=== PATIENT | female | born 1980 | race Hispanic/Latino ===

== ENCOUNTER 2019-07-27 12:56 | Inpatient (IN) | payer BC, OTHER ==
[~2019-07-27] VITALS: Ht 154.9 cm; Wt 76.2 kg
[2019-07-27 13:50] LABS: BASOPHILS % 0.3 % (0.0-1.0); HEMATOCRIT 42.4 % (34.2-44.1); HEMOGLOBIN 13.9 g/dL (12.0-16.0); LYMPHOCYTES # (AUTO) 1.3 (1.0-3.2); LYMPHOCYTES % 20.4 % (18.0-39.1); MEAN CORPUSCULAR HGB CONC 32.8 g/dL (31-35); MEAN CORPUSCULAR VOLUME 88.3 fL (81-99); MONOCYTES # (AUTO) 0.3 (0.2-0.8); MONOCYTES % 4.4 % (4.4-11.3); NEUTROPHILS # (AUTO) 4.6 (2.1-6.9); NEUTROPHILS % 74.4 % (38.7-80.0); PLATELET COUNT 238 x10e3/uL (140-360); RED CELL DISTRIBUTION WIDTH 13.7 % (11.7-14.4)
[2019-07-27 14:03] LABS: INR 0.82; PARTIAL THROMBOPLASTIN TIME 31.8 seconds (23.8-35.5); PROTHROMBIN TIME 11.8 seconds (11.9-14.5)
[2019-07-27] MEDS ORDERED: SODIUM CHLORIDE 0.9% 1000ML 1,000 ML ONE (14:05)
[2019-07-27 14:13] LABS: ALANINE AMINOTRANSFERASE 28 IU/L (0-55); ALBUMIN 3.4 g/dL (3.5-5.0); ALBUMIN/GLOBULIN RATIO 0.7 (0.8-2.0); ALKALINE PHOSPHATASE 104 IU/L (40-150); ANION GAP 17.1 mmol/L (8-16); BLOOD UREA NITROGEN 8 mg/dL (7-26); BUN/CREATININE RATIO 11 (6-25); CALCIUM 8.9 mg/dL (8.4-10.2); CARBON DIOXIDE 21 mmol/L (22-29); CHLORIDE 100 mmol/L (98-107); CREATINE KINASE 61 IU/L (29-168); CREATININE, SERUM 0.74 mg/dL (0.57-1.11); EST GLOMERULAR FILTRATION RATE > 60 ML/MIN (60-); GLUCOSE 97 mg/dL (74-118); POTASSIUM 3.1 mmol/L (3.5-5.1); SODIUM 135 mmol/L (136-145)
[2019-07-27] MEDS ORDERED: SODIUM CHLORIDE 0.9% 1000ML 1,000 ML IV ONE (14:15)
[2019-07-27] MEDS ORDERED: CEFTRIAXONE SOD 1 GM/NS 50 ML 50 ML IV ONE (14:15)
[2019-07-27] MEDS ORDERED: ACETAMINOPHEN 325 MG TAB PO ONE (14:15)
--- NOTE | 2019-07-27 15:07 | Diagnostic Imaging Report ---
EXAM: CHEST SINGLE (PORTABLE) DATE: 07/27/2019 2:00 PM INDICATION: Dyspnea COMPARISON: None FINDINGS: The trachea is midline. There are increased interstitial opacities present bilaterally. There is no evidence for large focal consolidation, pneumothorax, or significant pleural effusion. The cardiomediastinal silhouette is within normal limits. No acute osseous abnormalities identified. The stranding soft tissues are unremarkable. IMPRESSION: Increased bilateral interstitial opacities which are nonspecific but can be seen in the setting of edema. An atypical/viral infectious or inflammatory process could have a similar appearance. Signed by: Dr. Mario Davila MD on 07/27/2019 3:04 PM
--- NOTE | 2019-07-27 16:24 | Emergency Department Note ---
History of Present Illnes History of Present Illness Chief Complaint: Respiratory History of Present Illness This is a 39 year old female sent from medics breast or shortness of breath cough and congestion, patient admits to having a cold exposure. Chief Complaint Comment SENT OVER FROM [facility] FOR DIFFICULTY BREATHING, COUGH AND CONGESTION X 5 DAYS AND PUI STATES HER FRIEND WAS RECENTLY DX WITH COVID DENIES CP PRESENTS WITH FEVER C/O CHILLS AND MUSCLE ACHES AND NAUSEA NO VOMITING DENIES LOSS OF TASTE/SMELL Historian: Patient Arrival Mode: Car Onset (how long ago): day(s) Radiation: non-radiation Severity: moderate Onset quality: gradual Timing of current episode: constant Progression: worsening Chronicity: new Context: recent illness Relieving factors: none Exacerbating factors: none Past Medical/Family History Physician Review I have reviewed the patient's past medical and family history. Any updates have been documented here. Past Medical History Recent Fever: Yes Clinical Suspicion of Infectio: Yes New/Unexplained Change in Ment: No Past Medical History: None Past Surgical History: Cholecysctectomy, Social History Smoking Cessation: Never Smoker Counseling Performed: No Alcohol Use: None Any Illegal Drug Use: No TB Exposure/Symptoms: No Physically hurt or threatened: No Other Last Tetanus: UTD Any Pre-Existing Lines (PICC,: No Is patient up to date on immun: Yes Last Flu: UTD Last Pneumovax: OOD Review of Systems Review of Systems Constitutional: no symptoms EENTM: no symptoms Cardiovascular: no symptoms Respiratory: as per HPI, cough, dyspnea, dyspnea on exertion Gastrointestinal: no symptoms Genitourinary: no symptoms Musculoskeletal: no symptoms Neurological: no symptoms Psychological: no symptoms Endocrine: no symptoms Hematological/Lymphatic: no symptoms Review of other systems All other systems reviewed and negative. Physical Exam Related Data Allergies: Coded Allergies: No Known Allergies (Unverified , 07/27/19) Triage Vital Signs Vital Signs Date Time Temp Pulse Resp B/P (MAP) Pulse Ox O2 Delivery O2 Flow Rate FiO2 07/27/19 13:40 102.9 110 24 132/83 100 Vital signs reviewed: Yes Physical Exam CONSTITUTIONAL Constitutional: well-developed, well-nourished, ill appearing HENT HENT: normocephalic, atraumatic, oropharynx clear/moist, nose normal HENT L/R: left ext ear normal, right ext ear normal EYES Eyes: PERRL, conjunctivae normal NECK Neck: ROM normal PULMONARY Pulmonary: effort normal, respiratory distress CARDIOVASCULAR Cardiovascular: regular rhythm, heart sounds normal, capillary refill normal, normal rate GASTROINTESTINAL Abdominal: soft, nontender, bowel sounds normal GENITOURINARY Genitourinary: exam deferred SKIN Skin: warm, dry MUSCULOSKELETAL Musculoskeletal: ROM normal NEUROLOGICAL Neurological: alert, oriented x 3, no gross motor or sensory deficits PSYCHOLOGICAL Psychological: mood/affect normal, judgement normal Results Laboratory Result Diagram: 07/27/19 1335 07/27/19 1335 Laboratory Laboratory Tests Test 07/27/19 13:35 White Blood Count 6.19 x10e3/uL (4.8-10.8) Red Blood Count 4.80 x10e6/uL (3.6-5.1) Hemoglobin 13.9 g/dL (12.0-16.0) Hematocrit 42.4 % (34.2-44.1) Mean Corpuscular Volume 88.3 fL (81-99) Mean Corpuscular Hemoglobin 29.0 pg (28-32) Mean Corpuscular Hemoglobin Concent 32.8 g/dL (31-35) Red Cell Distribution Width 13.7 % (11.7-14.4) Platelet Count 238 x10e3/uL (140-360) Neutrophils (%) (Auto) 74.4 % (38.7-80.0) Lymphocytes (%) (Auto) 20.4 % (18.0-39.1) Monocytes (%) (Auto) 4.4 % (4.4-11.3) Eosinophils (%) (Auto) 0.0 % (0.0-6.0) Basophils (%) (Auto) 0.3 % (0.0-1.0) Neutrophils # (Auto) 4.6 (2.1-6.9) Lymphocytes # (Auto) 1.3 (1.0-3.2) Monocytes # (Auto) 0.3 (0.2-0.8) Eosinophils # (Auto) 0.0 (0.0-0.4) Basophils # (Auto) 0.0 (0.0-0.1) Absolute Immature Granulocyte (auto 0.03 x10e3/uL (0-0.1) Prothrombin Time 11.8 seconds (11.9-14.5) Prothromb Time International Ratio 0.82 Activated Partial Thromboplast Time 31.8 seconds (23.8-35.5) Sodium Level 135 mmol/L (136-145) Potassium Level 3.1 mmol/L (3.5-5.1) Chloride Level 100 mmol/L (98-107) Carbon Dioxide Level 21 mmol/L (22-29) Anion Gap 17.1 mmol/L (8-16) Blood Urea Nitrogen 8 mg/dL (7-26) Creatinine 0.74 mg/dL (0.57-1.11) Estimat Glomerular Filtration Rate > 60 ML/MIN (60-) BUN/Creatinine Ratio 11 (6-25) Glucose Level 97 mg/dL (74-118) Lactic Acid Level 1.0 mmol/L (0.5-2.0) Calcium Level 8.9 mg/dL (8.4-10.2) Total Bilirubin 0.6 mg/dL (0.2-1.2) Aspartate Amino Transf (AST/SGOT) 35 IU/L (5-34) Alanine Aminotransferase (ALT/SGPT) 28 IU/L (0-55) Alkaline Phosphatase 104 IU/L (40-150) Creatine Kinase 61 IU/L (29-168) Creatine Kinase MB 0.20 ng/mL (0-5.0) Troponin I 0.001 ng/mL (0-0.300) Total Protein 8.4 g/dL (6.5-8.1) Albumin 3.4 g/dL (3.5-5.0) Globulin 5.0 g/dL (2.3-3.5) Albumin/Globulin Ratio 0.7 (0.8-2.0) Lab results reviewed: Yes Imaging Imaging results reviewed: Yes Impressions FINDINGS: The trachea is midline. There are increased interstitial opacities present bilaterally. There is no evidence for large focal consolidation, pneumothorax, or significant pleural effusion. The cardiomediastinal silhouette is within normal limits. No acute osseous abnormalities identified. The stranding soft tissues are unremarkable. IMPRESSION: Increased bilateral interstitial opacities which are nonspecific but can be seen in the setting of edema. An atypical/viral infectious or inflammatory process could have a similar appearance. Signed by: Dr. Mario Davila MD on 07/27/2019 3:04 PM Procedures 12 Lead ECG Interpretation Prior E [employer] tracings: reviewed Rhythm: sinus tachycardia QRS axis: normal ST segments normal: Yes T waves normal: Yes Critical Care Time Total Critical Care Time (min): 35 Critcal care necessary due to: respiratory failure Subsequent provider I assumed direction of critical care for this patient from another provider of my specialty. Assessment & Plan Reassessment Reassessment Patient presented during the COVID-19 virus pandemic and has a clinical picture consistent with a COVID-19 source for sepsis. Thus, patient was treated for suspected viral sepsis rather than bacterial sepsis. Given the potential for ARDS and present suggestions of early data from COVID treatment in other areas, fluids were given judiciously and the bacterial sepsis guidelines were deviated from. For consideration of other sources, blood cultures, antibiotics and lactic acid will potentially be ordered. Will continue to monitor blood pressure and adjust fluid resuscitation accordingly." Assessment & Plan Final Impression: (1) VIRAL PNEUMONIA, UNSPECIFIED Assessment & Plan cbc, cmp CXR Covid Positive Early proning Admission for respiratory monitoring Depart Disposition: ADMITTED Last Vital Signs Date Time Temp Pulse Resp B/P (MAP) Pulse Ox O2 Delivery O2 Flow Rate FiO2 07/27/19 15:45 101 20 108/74 98 07/27/19 13:40 102.9 Medications in the ED Sodium Chloride 1,000 ml @ ud STK-MED ONCE .ROUTE ; Start 07/27/19 at 14:05; Stop 07/27/19 at 13:59; Status DC Sodium Chloride 1,000 ml @ 999 mls/hr ONCE ONCE IV Last administered on 07/27/19at 15:44; Admin Dose 999 MLS/HR; Start 07/27/19 at 14:15; Stop 07/27/19 at 15:15 Acetaminophen 975 mg ONCE ONCE PO Last administered on 07/27/19at 15:45; Admin Dose 975 MG; Start 07/27/19 at 14:15; Stop 07/27/19 at 14:16 Ceftriaxone Sodium 50 ml @ 100 mls/hr ONCE ONCE IV Last administered on 07/27/19at 15:44; Admin Dose 100 MLS/HR; Start 07/27/19 at 14:15; Stop 07/27/19 at 14:44 GEOVANY JACOB DO Jul 27, 2019 16:24
--- OUTSIDE RECORDS SUMMARY | 2019-07-27 16:30 | XMS REPORT ---
Author Author [facility] t Organization [facility] Address [address] [place] [address] Dr. Ritchie [address] [place] [id number] Phone Unavailable Care Team Providers Care Service Greeter Name Role Phone Jeremiah JACOB Attfawad Unavailable Problems This patient has no known problems. Allergies, Adverse Reactions, Alerts This patient has no known allergies or adverse reactions. Medications This patient has no known medications. Procedures This patient has no known procedures. Results Test Description Test Time Test Comments Results Result Comments Source CHEST SINGLE (PORTABLE) 2019-07-27 15:02:00 [place] [address] Patient Name: BLAISE LUIS MR #: [id number] : 1980 Age/Sex: 39/F Req #: [id number] Adm Physician: Ordered by: GEOVANY JACOB DO Report #: [id number] Location: ER Room/Bed: Procedure: [id number] DX/CHEST SINGLE (PORTABLE) Exam Date: 07/27/19 Exam Time: 1400 REPORT STATUS: Signed EXAM: CHEST SINGLE (PORTABLE) DATE: 07/27/2019 2:00 PM INDICATION: Dyspnea COMPARISON: None FINDINGS: The trachea is midline. There are increased interstitial opacities present bilaterally. There is no evidence for large focal consolidation, pneumothorax, or significant pleural effusion. The cardiomediastinal silhouette is within normal limits. No acute osseous abnormalities identified. The stranding soft tissues are unremarkable. IMPRESSION: Increased bilateral interstitial opacities which are nonspecific but can be seen in the setting of edema. An atypical/viral infectious or inflammatory process could h ave a similar appearance. Signed by: Dr. Mario Davila MD on 07/27/2019 3:04 PM Dictated By: MARIO DAVILA MD [id number] Transcribed By: JAIRO on 07/27/19 1503 COPY TO: GEOVANY JACOB DO
[2019-07-27] MEDS ORDERED: ACETAMINOPHEN 325 MG TAB PO PRN (17:45)
[2019-07-27] MEDS ORDERED: POTASSIUM CHLORIDE 20 MEQ TAB CR PO ONE (18:00)
[2019-07-27] MEDS: GUAIFENESIN/CODEINE 10 ML CUP PO PRN (18:20)
[2019-07-27] MEDS: AZITHROMYCIN 500MG/NS 250 ML 250 ML IV SCH (18:20)
--- NOTE | 2019-07-27 20:45 | Consultation ---
DATE OF CONSULTATION: Pulmonary Critical Care Consultation CHIEF COMPLAINT: Fever and cough. HISTORY OF PRESENT ILLNESS: The patient is a 39-year-old woman. She has no prior history of asthma or cardiac disease. She reports fever for about 5 days. She has a persistent cough. She denies any nausea or vomiting, although she did have some diarrhea. She has a friend, who recently tested positive for COVID. PAST SURGICAL HISTORY: Status post . PAST MEDICAL HISTORY: 1. No prior asthma. 2. No prior pulmonary disease. 3. No prior cardiac disease. ALLERGIES: NO KNOWN DRUG ALLERGIES. SOCIAL HISTORY: The patient is not an active smoker. She is not an active drinker. REVIEW OF SYSTEMS: There is no fever, although she did have fevers at home. She has no headache. She has no neck pain. She does not have any chest pain. She does note some mild dyspnea. There is no nausea or vomiting. She had some diarrhea. She has no leg swelling. PHYSICAL EXAMINATION: VITAL SIGNS: The blood pressure is 108/74 and the saturation is 98%. The pulse is 101. Respiratory rate is 20. T-max is 102.9. HEENT: Shows no facial swelling or erythema. CARDIAC: Reveals a regular rate and rhythm with normal S1 and S2. LUNGS: Auscultation of lungs reveals crackles at the bases. There is no wheezing. ABDOMEN: Soft and nontender. There is no rebound or guarding. EXTREMITIES: Shows no leg edema or calf tenderness. There is no cyanosis or clubbing. SKIN: Shows no rashes. NEUROLOGICAL: Shows no focal abnormalities. RADIOGRAPHIC DATA: Chest x-ray shows bilateral infiltrates. LABORATORY DATA: Potassium is 3.1, albumin is 3.4, and the carbon dioxide is 21. IMPRESSION: 1. Viral pneumonia. 2. Possible COVID-19 infection. 3. Hypokalemia. PLAN: 1. Antibiotics for community-acquired pneumonia. 2. COVID-19 testing. 3. Antipyretics. 4. Replace potassium. MD JESSICA Garcia/MODL /[id number]
[2019-07-27] MEDS ORDERED: ZOLPIDEM TARTRATE 5 MG TAB PO PRN (21:00)
--- NOTE | 2019-07-27 21:15 | NUR ---
Patient came to the unit from Er in a wheel chair.admission assessment done.aaox4.self ambulates.no resp.distress.oriented to the unit.bed locked and in lowest position.call light within reach.instructed to call for assistance as needed.stable condition.
[2019-07-27 21:20] VITALS: BP 120/77
[2019-07-27 21:30] VITALS: BP 120/77
[2019-07-27 21:42] VITALS: BP 120/77
[2019-07-27] MEDS ORDERED: POTASSIUM CHLORIDE 20 MEQ TAB CR PO STA (23:05)
[2019-07-27] MEDS ORDERED: MELATONIN 5 MG TABLET PO PRN (23:15)
[2019-07-27] MEDS ORDERED: DOCUSATE SODIUM 100 MG CAP PO PRN (23:15)
[2019-07-27] MEDS ORDERED: HYDRALAZINE HCL 20 MG/ML VIAL IV PRN (23:15)
[2019-07-28] VITALS (8 sets, daily range): BP systolic 100–119; BP diastolic 66–75
[2019-07-28] MEDS: ENOXAPARIN SOD INJ 40 MG/0.4 ML SYR SC SCH ×2 (00:07→17:00)
[2019-07-28] MEDS: GUAIFENESIN/CODEINE 10 ML CUP PO PRN ×3 (00:22→18:46)
[2019-07-28] MEDS: ACETAMINOPHEN 325 MG TAB PO PRN ×3 (04:51→18:46)
--- NOTE | 2019-07-28 05:00 | NUR ---
BLOOD BONY AND SENT TO THE LAB .PATIENT TOLERATED WELL.HAS TEMP 100.9.TYLENOL 650 MG PO GIVEN.
[2019-07-28 05:31] LABS: BASOPHILS % 0.2 % (0.0-1.0); HEMATOCRIT 38.4 % (34.2-44.1); HEMOGLOBIN 12.5 g/dL (12.0-16.0); LYMPHOCYTES # (AUTO) 1.4 (1.0-3.2); LYMPHOCYTES % 26.2 % (18.0-39.1); MEAN CORPUSCULAR HEMOGLOBIN 28.9 pg (28-32); MEAN CORPUSCULAR HGB CONC 32.6 g/dL (31-35); MEAN CORPUSCULAR VOLUME 88.7 fL (81-99); MONOCYTES # (AUTO) 0.3 (0.2-0.8); MONOCYTES % 6.4 % (4.4-11.3); NEUTROPHILS # (AUTO) 3.6 (2.1-6.9); NEUTROPHILS % 66.5 % (38.7-80.0); PLATELET COUNT 224 x10e3/uL (140-360); RED BLOOD COUNT 4.33 x10e6/uL (3.6-5.1); RED CELL DISTRIBUTION WIDTH 13.9 % (11.7-14.4)
[2019-07-28 06:14] LABS: ALANINE AMINOTRANSFERASE 28 IU/L (0-55); ALBUMIN 2.8 g/dL (3.5-5.0); ALBUMIN/GLOBULIN RATIO 0.6 (0.8-2.0); ALKALINE PHOSPHATASE 100 IU/L (40-150); ANION GAP 13.7 mmol/L (8-16); BLOOD UREA NITROGEN 7 mg/dL (7-26); BUN/CREATININE RATIO 12 (6-25); CALCIUM 8.3 mg/dL (8.4-10.2); CARBON DIOXIDE 21 mmol/L (22-29); CHLORIDE 105 mmol/L (98-107); CREATININE, SERUM 0.58 mg/dL (0.57-1.11); EST GLOMERULAR FILTRATION RATE > 60 ML/MIN (60-); GLUCOSE 76 mg/dL (74-118); POTASSIUM 3.7 mmol/L (3.5-5.1); SODIUM 136 mmol/L (136-145)
--- NOTE | 2019-07-28 06:18 | NUR ---
Consults with notified.
--- NOTE | 2019-07-28 06:59 | NUR ---
Bed side shift report given to oncoming Rn.stable condition.
--- NOTE | 2019-07-28 07:25 | NUR ---
cONSULTATION INFECTIOUS DISEASE covid 19 The patient is a 39-year-old woman. She has no prior history of asthma or cardiac disease. She reports fever for about 5 days. She has a persistent cough. She denies any nausea or vomiting, although she did have some diarrhea. Patient is being admitted covid 19 She has a friend, who recently tested positive for COVID. PAST SURGICAL HISTORY: Status post . PAST MEDICAL HISTORY: 1. No prior asthma. 2. No prior pulmonary disease. 3. No prior cardiac disease. ALLERGIES: NO KNOWN DRUG ALLERGIES. SOCIAL HISTORY: The patient is not an active smoker. She is not an active drinker. REVIEW OF SYSTEMS: There is no fever, although she did have fevers at home. She has no headache. She has no neck pain. She does not have any chest pain. She does note some mild dyspnea. There is no nausea or vomiting. She had some diarrhea. She has no leg swelling. her physical examinations currently alert oriented does not seem to be in acute distress her vitals are stable afebrile. HEENT normocephalic not pale not icteric. Neck supple no JVD no lymphadenopathy or thyromegaly. Chest clear bilateral. Heart S1-S2 no S3-S4 there is nomurmur abdomen soft bowel shunt present no tenderness no hepatosplenomegaly. Extremities no edema skin no rash. [id number] DROPLET ISOLATION
[2019-07-28] MEDS ORDERED: SODIUM CHLORIDE 0.9% 250ML 250 ML ONE (08:24)
--- NOTE | 2019-07-28 08:42 | NUR ---
pt alert resp even and unlabored at this time no distress noted, pt had no c/o pain when asked, call light in reach.
[2019-07-28] MEDS: CEFTRIAXONE SOD 1 GM/NS 50 ML 50 ML IV SCH (09:00)
--- NOTE | 2019-07-28 12:00 | NUR ---
Dr. Soto here to see pt.
[2019-07-28] MEDS ORDERED: SODIUM CHLORIDE 0.9% 1000ML 1,000 ML ONE (15:24)
--- NOTE | 2019-07-28 15:32 | NUR ---
Dr Denson here to see pt.
[2019-07-28] MEDS: AZITHROMYCIN 500MG/NS 250 ML 250 ML IV SCH (18:00)
--- NOTE | 2019-07-28 18:36 | History and Physical ---
CHIEF COMPLAINT: Cough, congestion, fever. HISTORY OF PRESENT ILLNESS: This is a 39-year-old female, who came into the ED with complaints of cough, congestion, and fever ongoing for the last five days. The patient reports that her friend was coronavirus positive. She reports that she was recently at a barbecue with her friend and which she was not feeling well and she was tested to be positive. The patient's symptoms did not improve instead came to the ED for further evaluation and management. The patient reported having continuous fever for significant period of time at home. While here, the patient was found to be coronavirus positive. She did have a fever of 102.9 on the admission in the ER. Since then she has done very well. She is asymptomatic currently, has no cough, no congestion, and is afebrile. She is not on any home O2. The patient was seen and evaluated at bedside on the medical floor. Currently she is doing very well with no other issues at this time. REVIEW OF SYSTEMS: Pertinent positive cough, congestion, and fever x5 days. The rest of 14-point review of systems are reviewed with the patient and are negative. ALLERGIES: NO KNOWN DRUG ALLERGIES. HOME MEDICATIONS: None. PAST MEDICAL HISTORY: Reports none. PAST SURGICAL HISTORY: None. FAMILY HISTORY: Hypertension and diabetes. SOCIAL HISTORY: No drugs, no alcohol, does not smoke. Good social support. PHYSICAL EXAMINATION: VITAL SIGNS: Temperature is 98.6, T-max was 102.9, pulse 97, respirations is 18, blood pressure 110/66, pulse ox 96% on room air. GENERAL: In acute distress, alert and oriented x3, cooperative on examination. PULMONARY: Clear to auscultation bilaterally. No wheezing, rales, or rhonchi. No crackles appreciated. CARDIOVASCULAR: Positive S1, S2. No murmurs, rubs, or gallops. ABDOMEN: Soft and nontender to palpation. Bowel sounds present. MUSCULOSKELETAL: Strength is 5/5 throughout. No evidence of any muscle deficits on examination. No weakness appreciated. NEUROLOGICAL: Alert, awake, and oriented x3. SKIN: Intact, warm to touch, good cap refill. PSYCHIATRIC: Normal affect and mood. EXTREMITIES: No edema. Good range of motion throughout. LABORATORY FINDINGS: Show white count 5.3, hemoglobin 12, hematocrit 38, platelets of 224,000. Coagulation; PT 11, INR 0.82, and PTT 31. Chemistry; sodium 136, potassium 3.7, chloride 105, bicarb 29, anion gap of 13, BUN is 7, creatinine is 0.58, glucose is 76, calcium is 8.3. LFTs within normal range. Albumin was 2.8. Beta HCG was negative. Serologies; coronavirus was positive. Microbiology; blood cultures were pending. Chest x-ray shows increased bilateral interstitial opacity, which were nonspecific and can be seen in the setting of edema. An atypical viral infectious inflammatory process can have similar appearance. IMPRESSION: 1. Cough, congestion, and fever with positive coronavirus. 2. Shortness of breath. 3. Probable community-acquired pneumonia. PLAN: At this time, I have Pulmonary and ID consulted. She is on IV antibiotics. Blood cultures are still pending. The patient is doing very well. She is currently afebrile. She is on room air. She is not even on oxygen. I discussed with the patient to ambulate in the room to see if she gets very short of breath on ambulation and I will monitor overnight and if she does well she can potentially be discharged tomorrow. We will continue with antibiotics for now. Follow recommendations by ID and Pulmonary. I will put her on Lovenox for DVT prophylaxis. Encourage ambulation. Heart healthy diet. MD MEGHAN Campbell/SUN /[id number]
--- NOTE | 2019-07-28 18:46 | Consultation ---
DATE OF CONSULTATION: REASON FOR CONSULTATION: COVID-19. HISTORY OF PRESENT ILLNESS: This patient, who is a 39-year-old Latin-Italian female, denies any past medical history, who comes into the emergency room because she was tested positive for COVID-19. The patient is telling me that over the weekend she was around someone who has COVID-19. She found that a few days later she developed a fever and a little bit of cough. The patient was found to have shortness of breath, went Urgent Care, tested, was sent here. She is being admitted. She is currently feeling better. She still have some shortness of breath. PAST MEDICAL HISTORY: Denies. PAST SURGICAL HISTORY: Denies. ALLERGIES: NKA. SOCIAL HISTORY: There is no smoking, drug abuse, or alcohol abuse. FAMILY HISTORY: Otherwise noncontributory. REVIEW OF SYSTEMS: HEENT: Negative. PULMONARY: Mild shortness of breath, otherwise all negative. PHYSICAL EXAMINATION: GENERAL: She is currently alert, oriented, does not seem in acute distress. VITAL SIGNS: Stable, currently afebrile. HEENT: She is not icteric. NECK: Supple. CHEST: . HEART: S1 and S2. No S3, S4 or murmurs. ABDOMEN: Soft. IMPRESSION: COVID-19 present on admission. Continue with supportive care. Continue with oxygen as needed, concerned about community-acquired pneumonia, making her shortness of breath. Continue Rocephin and azithromycin as ordered. We will give her zinc supplement and vitamin C supplement. Reassess in the morning. She is not hypoxemic, could be discharged home with Z-Hector and zinc supplement and vitamin C supplement. MD SUBHASH Servin/MODJamie /[id number]
--- NOTE | 2019-07-28 19:05 | NUR ---
Received the patient in report.lyeing in the bed.stable condition.
--- NOTE | 2019-07-28 19:10 | NUR ---
report given to oncoming nurse . pt stable at this time.
--- NOTE | 2019-07-28 21:00 | NUR ---
Assessment done.no resp.distress.aox4.stable condition.left ac #20 g is patent.keep monitor the patient.
[2019-07-29] VITALS (8 sets, daily range): BP systolic 106–113; BP diastolic 62–75
[2019-07-29] MEDS: GUAIFENESIN/CODEINE 10 ML CUP PO PRN ×4 (00:29→20:07)
[2019-07-29] MEDS: ACETAMINOPHEN 325 MG TAB PO PRN ×4 (00:47→21:52)
--- NOTE | 2019-07-29 07:10 | NUR ---
SHIFT REPORT GIVEN TO ONCOMING RN.
[2019-07-29] MEDS: CEFTRIAXONE SOD 1 GM/NS 50 ML 50 ML IV SCH (08:49)
--- NOTE | 2019-07-29 10:07 | Diagnostic Imaging Report ---
EXAMINATION: CHEST SINGLE (PORTABLE) INDICATION: Pneumonia COMPARISON: Chest radiograph 07/27/2019 FINDINGS: LINES/TUBES:EKG leads overlie the chest. LUNGS:The lung volumes are low. Unchanged bilateral interstitial and airspace opacities. PLEURA:No pleural effusion or pneumothorax. MEDIASTINUM:The cardiomediastinal silhouette appears normal in size and shape. BONES/SOFT TISSUES:No acute osseous injury. ABDOMEN:No free air under the diaphragm. IMPRESSION: No significant interval change. Signed by: Robi Quinones MD on 07/29/2019 10:04 AM
[2019-07-29] MEDS ORDERED: ROBITUSSIN COU118 M4 PO (11:14)
[2019-07-29] MEDS ORDERED: AZITHROMYCIN500 MG PO (11:15)
[2019-07-29] MEDS ORDERED: CEFDINIR300 MG PO (11:15)
--- NOTE | 2019-07-29 12:17 | NUR ---
CALL RECEIVED FROM [facility] [place] [phone]. SPOKE W TANVI. STATES SHE NEEDED TO SPEAK W DADAISY FIRST. INFORMED EVAL WOULD NEED TO BE DONE TO ASSESS IF THE PT QUALIFIES FOR O2. VERBALIZED. UNDERSTANDING. [place] [phone]. WILL AWAIT FAX.
--- NOTE | 2019-07-29 13:00 | NUR ---
O2 [employer] RECEIVED W ORDER FOR O22L/NC. CALL TO THE PT TO DISCUSS CHOICE. STATES SHE WOULD LIKE TO USE A COMPANY IN NETWORK W HER INSURANCE. OFFERED [facility]. REFERRAL FAXED TO [facility] @ OFF: [phone] / FAX: [phone]. NOTIFIED MELIDA / PETE PRICE.
--- NOTE | 2019-07-29 13:15 | Progress Note ---
DATE: SUBJECTIVE: Ms. Britt is feeling better. There are no new complaints. She is still having some cough. PHYSICAL EXAMINATION: GENERAL: Currently alert and oriented, does not seem to be in acute distress. VITAL SIGNS: Stable. T-max 100.1 that is trending down. HEENT: She is not icteric. NECK: Supple. CHEST: Clear bilateral. HEART: S1, S2. No S3, S4, or murmur. ABDOMEN: Soft. Bowel sounds present. No tenderness. EXTREMITIES: No edema. SKIN: No rash. IMPRESSION: COVID-19, slowly getting better. The patient will be discharged home. Community-acquired pneumonia, to finish azithromycin as ordered. To take supplement of zinc and vitamin C as ordered. Further recommendation to follow. Could be discharged home quarantine till I see her to be rechecked in 2 weeks. We will test her again in 2 weeks by PCR and we will also check her antibodies. MD SUBHASH Servin/SUN /[id number]
--- NOTE | 2019-07-29 13:25 | Progress Note ---
DATE: SUBJECTIVE: The patient is feeling better. She still has some cough. She has some dyspnea with exertion. She has less fever. PHYSICAL EXAMINATION: VITAL SIGNS: The patient is afebrile. The blood pressure is 113/75, saturation is 93% on room air, but desaturates with minimal walking. CARDIAC: Reveals regular rate and rhythm with normal S1 and S2. LUNGS: Auscultation of lungs reveals clear breath sounds bilaterally. There is no wheezing. ABDOMEN: Soft and nontender. There is no rebound or guarding. EXTREMITIES: Shows no leg edema or calf tenderness. There is no cyanosis or clubbing. SKIN: Shows no rashes. NEUROLOGICAL: Shows no focal abnormalities. IMPRESSION: 1. Viral pneumonia. 2. COVID-19 infection. PLAN: 1. The patient will be discharged home. 2. Home oxygen temporarily. 3. Complete antibiotics. 4. Follow up in 1 to 2 weeks to assess improvement and repeat COVID test. MD JESSICA Garcia/SUN /[id number]
[2019-07-29] MEDS: ENOXAPARIN SOD INJ 40 MG/0.4 ML SYR SC SCH (17:20)
[2019-07-29] MEDS: AZITHROMYCIN 250 MG TAB PO SCH (17:20)
[2019-07-30] VITALS (8 sets, daily range): BP systolic 101–114; BP diastolic 60–78
--- NOTE | 2019-07-30 01:22 | Progress Note ---
DATE: 07/29/2019 Medicine Progress Note SUBJECTIVE: The patient was short of breath on ambulation. She desaturates to like according to the nursing staff like 82% on ambulation. She does qualify for home O2, which will be arranged. PHYSICAL EXAMINATION: VITAL SIGNS: Temperature 98.9, pulse 91, respirations 19, blood pressure was 110/66, pulse ox 94% on room air. GENERAL: Not in acute distress. Alert and oriented x3. Cooperative on examination. HEENT: Normocephalic and atraumatic. Eyes; pupils are reactive to light bilaterally. Extraocular movements intact bilaterally. Throat; no evidence of erythema or exudates in the posterior pharynx. Has poor dentition. NECK: Supple. Good range of motion. PULMONARY: Clear to auscultation bilaterally. No wheezing, no rales, no rhonchi. No crackles appreciated. CARDIOVASCULAR: Positive S1, S2. No S3. No murmurs, rubs, or gallops appreciated. ABDOMEN: Soft, nondistended, and nontender to palpation. Bowel sounds present. SKIN: Intact. Warm to touch. Good cap refill. PSYCHIATRIC: Normal affect and mood. EXTREMITIES: No edema. Good range of motion throughout. LABORATORY DATA: Labs show white count 5.3, hemoglobin 12, hematocrit 38, platelets of 224. Chemistry; sodium 136, potassium 3.7, chloride 105, bicarb 21, anion gap of 13, BUN is 7 and creatinine 0.58, calcium is 8.3. MICROBIOLOGY: Blood cultures, no growth to date. IMPRESSION: 1. Cough, congestion, fever with coronavirus positive. 2. Shortness of breath on ambulation. 3. Probable community-acquired pneumonia. PLAN: At this time, the patient desaturate on ambulation to 82%. Home O2 has been ordered. She will be discharged tomorrow once her oxygen is arranged. Continue with the same plan of care. Oral antibiotics have been placed in the chart as well as zinc and vitamin C. Continue with Lovenox for DVT prophylaxis. Discussed plan of care with nursing staff. MD MEGHAN Campbell/AMYL /[id number]
[2019-07-30] MEDS: GUAIFENESIN/CODEINE 10 ML CUP PO PRN ×3 (04:47→12:45)
--- NOTE | 2019-07-30 07:00 | NUR ---
Received shift report from the off-going night nurse. Patient in stable condition, No s/s of distress noted. No pain voiced. IV site left AC asymptomatic and patient. Transparent dressing C/D/I. Telemetry applied. Bed in lowest position and locked. Call light within reach.
[2019-07-30] MEDS ORDERED: SODIUM CHLORIDE 0.9% 250ML 250 ML ONE (08:08)
[2019-07-30] MEDS: CEFTRIAXONE SOD 1 GM/NS 50 ML 50 ML IV SCH (08:40)
[2019-07-30] MEDS: ENOXAPARIN SOD INJ 40 MG/0.4 ML SYR SC SCH (16:18)
[2019-07-30] MEDS: AZITHROMYCIN 250 MG TAB PO SCH (16:18)
[2019-07-30] MEDS: BENZONATATE 100 MG CAP PO PRN (17:34)
--- NOTE | 2019-07-30 18:59 | NUR ---
Completed report with the oncoming night nurse. Patient in stable condition, no s/s of distress noted. Telemetry applied. Bed in lowest position and locked. Call light within reach.
--- NOTE | 2019-07-30 19:40 | Progress Note ---
DATE: SUBJECTIVE: She desaturated earlier today when she walked. What I saw her, she said she was very comfortable. She desaturated to 80% when she was walking. Currently, she is lying in bed. There is no fever, no chills. PHYSICAL EXAMINATION: GENERAL: She is currently alert and oriented. Does not seem to be in acute distress. VITAL SIGNS: Stable, currently afebrile. HEENT: She is not icteric. NECK: Supple. CHEST: Few crackles. COR: S1 and S2. No S3, S4, or murmurs. ABDOMEN: Soft. IMPRESSION: Fever, pneumonia, COVID-19 on admission, and hypoxemia. We will arrange home oxygen. The patient refused convalescent plasma. She is [employer]. To continue with 5 days course of Rocephin and azithromycin. We will reassess again in the morning. Hold discharge. Discussed with the patient. MD SUBHASH Servin/SUN /[id number]
--- NOTE | 2019-07-30 20:26 | Progress Note ---
DATE: Pulmonary Critical Care Progress Note SUBJECTIVE: The patient had some increased dyspnea yesterday. She was placed on 2 L. She felt better today. PHYSICAL EXAMINATION: VITAL SIGNS: Blood pressure is 101/60, saturation is 98%, and pulse is 72. HEENT: Shows no facial swelling or erythema. CARDIAC: Reveals regular rate and rhythm with normal S1 and S2. LUNGS: Auscultation of lungs reveals clear breath sounds bilaterally. There is no wheezing. ABDOMEN: Soft and nontender. There is no rebound or guarding. EXTREMITIES: Shows no leg edema or calf tenderness. IMPRESSION: Viral pneumonia and COVID-19 infection. PLAN: 1. Continue oxygen. 2. Continue Lovenox for DVT prophylaxis. 3. Continue antibiotics. 4. Reassess tomorrow for possible discharge. MD JESSICA Garcia/SUN /[id number]
--- NOTE | 2019-07-30 23:22 | NUR ---
Telemetry D/C per Manager Of Business Operations. Continuous pulse oximeter in place.
--- NOTE | 2019-07-30 23:46 | Progress Note ---
DATE: 07/30/2019 Medicine Progress Note SUBJECTIVE: The patient was seen and evaluated approximately around 12:30 p.m. The patient still very short of breath on ambulation. The patient has significant amount of cough according to the nursing staff and the patient. She has been coughing significant amounts today. She desaturates with ambulation. She reports that she is not ready to be discharged at this time. PHYSICAL EXAMINATION: VITAL SIGNS: Temperature is 98.7 pulse 70, respiratory rate is 18, blood pressure is 106/65, pulse ox 97% on 2 L nasal cannula. GENERAL: Not in acute distress. Alert and oriented x3. Cooperative on examination. HEENT: Head is normocephalic and atraumatic. Eyes; pupils are reactive to light bilaterally. Extraocular movements intact bilaterally. Throat; no evidence of erythema or exudates in the posterior pharynx. Has poor dentition. NECK: Supple. Good range of motion. PULMONARY: Clear to auscultation bilaterally. No wheezing, rales, or rhonchi. No crackles appreciated. CARDIOVASCULAR: Positive S1, S2. No murmurs, rubs, or gallops appreciated. ABDOMEN: Soft and nontender to palpation. Bowel sounds present. MUSCULOSKELETAL: Strength is 5/5 throughout. No evidence of any muscle deficits on examination. No weakness appreciated.. NEUROLOGIC: Cranial nerves 2 through 12 grossly intact. No evidence of any neurological deficits. SKIN: Intact. Warm to touch. Good cap refill. PSYCHIATRIC: Normal affect and mood. EXTREMITIES: No edema. Good range of motion throughout. LABORATORY DATA: Nothing new today. Microbiology, blood cultures no growth. IMAGING STUDIES: None. IMPRESSION: 1. Coronavirus positive with associated shortness of breath. 2. Cough, congestion, fever. 3. Community-acquired pneumonia. PLAN: At this time, the patient still continues to desaturate with ambulation. She reports she is very short of breath. She is not ready for discharge at this time. Continue with antibiotics, vancomycin and vitamin C. Lovenox for DVT prophylaxis. She has oxygen at bedside. If she is better, doing well tomorrow and she is comfortable, she will be discharged home. Otherwise, she is not ready for discharge today. MD MEGHAN Campbell/SUN /[id number]
[2019-07-31] VITALS: BP 113/77
[2019-07-31 04:18] VITALS: BP 115/64
[2019-07-31 07:00] VITALS: BP 117/75
[2019-07-31] MEDS: CEFTRIAXONE SOD 1 GM/NS 50 ML 50 ML IV SCH (07:58)
[2019-07-31] MEDS: BENZONATATE 100 MG CAP PO PRN (09:03)
[2019-07-31] MEDS: GUAIFENESIN/CODEINE 10 ML CUP PO PRN (09:03)
[2019-07-31 09:16] VITALS: BP 117/75
--- NOTE | 2019-07-31 10:20 | NUR ---
Patient ambulated in the room with 2L NC and continuous pulse reading. Oxygen saturation on exertion fluctuates from 87 to 96 percent. With 87 percent, patient is asymptomatic and denies SOB. Patient verbalized she is feeling a lot better today than yesterday. Verbalized she is ready to go home.
--- NOTE | 2019-07-31 10:48 | NUR ---
Patient's O2 saturation on RA at rest is 90% O2 sat on RA with exertion is 87% O2 sat with 2L NC on exertion is 95 %
[2019-07-31 12:00] VITALS: BP 101/68
--- NOTE | 2019-07-31 14:08 | NUR ---
Discharge education provided and discharge packet given. Advised patient to follow-up with Dr. Denson in 2 weeks for another covid-testing. Verbalized understanding. Patient taught how to use the home oxygen and what to avoid to prevent combustion. Verbalized understanding. PIV to left AC discontinued, catheter intact, no bleeding noted. Respiration even and unlabored without SOB with 2L NC. Transported patient to private vehicle with all personal belongings and home medication prescription taken. Addendum: 07/31/19 at 1447 by Emiliana Felder RN Patient provided the covid-19 discharge instructions and advised patient to quarantine for 2 weeks. Verbalized understanding.
--- NOTE | 2019-07-31 15:14 | Progress Note ---
DATE: SUBJECTIVE: Ms. Britt is feeling better. There are no new complaints. OBJECTIVE: GENERAL: She is currently alert, oriented. VITAL SIGNS: Stable. Currently, afebrile. HEENT: She is not icteric. NECK: Supple. CHEST: Clear with crackles bilateral. COR: S1 and S2. ABDOMEN: Soft. Bowel sounds present. EXTREMITIES: No edema. SKIN: No rash. The patient would like to go home. ASSESSMENT/PLAN: She could be discharged home with Z-Hector, albuterol inhaler and oxygen. Follow up in 3 weeks. To stay in home quarantine for the next 2 weeks. MD SUBHASH Servin/SUN /[id number]
--- NOTE | 2019-08-01 00:47 | Discharge Summary ---
FINAL DISCHARGE DIAGNOSES: 1. Coronavirus positive. 2. Shortness of breath, secondary to coronavirus. 3. Cough, congestion, and fever secondary to coronavirus. 4. Community-acquired pneumonia. CONSULTANTS: 1. Pulmonary. 2. Infectious Disease. PHYSICAL EXAMINATION: VITAL SIGNS: Temperature is 97.9, pulse 66, respiratory rate is 17, blood pressure was 117/75. She was saturating 97% on 2 L nasal cannula. She was stable. LABORATORY DATA: Labs show white count 5.3, hemoglobin 12, hematocrit is 38, platelets of 224. Coagulation PT 11, INR 0.82, PTT 31. Chemistry, sodium 136, potassium 3.7, chloride 105, bicarb 21, anion gap of 13. BUN is 7, creatinine is 0.58. Glucose is 76. Lactic acid is 1, calcium is 8.3. LFTs within normal range. Total protein 7.3, albumin 2.8. Beta-hCG was found to be negative. Troponins were negative. CK 61, alkaline phosphatase 104. Coronavirus was positive. MICROBIOLOGY: Blood cultures were negative. IMAGING STUDIES: Chest x-ray showed increased bilateral interstitial opacities, which are nonspecific but can be seen in the setting of edema. An atypical viral infectious or inflammatory process could have a similar process. Repeat chest x-ray on 07/29/2019, still showed similar findings on 07/27/2019. HOSPITAL COURSE: This is a 39-year-old female, who came in with complaints of cough, congestion, fever, and shortness of breath, found to be coronavirus positive. The patient was diagnosed and sent to the coronavirus unit and was treated accordingly. While here, the patient was on IV antibiotics, zinc, vitamin C, as well as supplemental oxygen and supportive care. Pulmonary and ID were consulted. While here, the patient did require oxygen requirement and was short of breath at some point while she was ambulating. The patient stabilized and did very well prior to being discharged to home. Home O2 was arranged for her for discharge. Prior to being discharged, the patient was trialed to ambulate in which she was not short of breath. She reports she was feeling way better and feeling improved and did not want to stay any longer. She felt she can handle this at home. She was discharged on antibiotic therapy, zinc, and vitamin C as well as her home O2, which was arranged via case management. The patient was cleared for discharge by Pulmonary and ID. She was educated on several fronts: Self quarantine for 2 weeks, repeat coronavirus PCR in [address] Denson's office and ID clinic, wear a mask all the time and also quarantine for 2 weeks at home and isolate and avoid large crowds and avoid people to contact the virus to other people. She was educated thoroughly by me, nursing staff, and Infectious Disease physician. She was also educated in terms if she has increased oxygen saturation, oxygen requirement at home that she was advised to call 911 and come to the ER for further evaluation. She was also advised to get a pulse ox to be purchased at home and to monitor oxygen saturation. She verbalized the entire plan of care and she verbalized understanding. On the day of discharge, she was stable. She was doing well. She was on oxygen. She was not short of breath and vital signs were stable. On the day of discharge, vital signs stable, labs reviewed and stable. The patient is seen and evaluated examined thoroughly on the day of discharge. No other complaints. The patient verbalized understanding and agrees to plan of care to follow up as an outpatient with the primary care physician in 1 week, ID in 10 to 14 days with repeat coronavirus PCR in his office and Pulmonary in 2 weeks' time. The patient will be weaned off oxygen by the ID Clinic as well as the sign artist. MEDICATIONS: See med reconciliation form including azithromycin, zinc, vitamin C, and Robitussin with codeine. DISPOSITION: To home. CONDITION: Stable. DIET: Heart healthy. In the event of any worsening symptoms, the patient was advised to come back to the ED for further evaluation. Discharge summary took greater than 35 minutes. Once again, the patient was educated in the event she gets very hypoxic, unable to breathe, has any issues, she was advised to call 911 to come to the local emergency room for further evaluation and management. She was also educated about self quarantine for 2 weeks, to continue with her antibiotics vitamin C and zinc. Avoid sick contacts, wear a mask all the time, and follow up with the appointments as educated above. She verbalized understanding, agrees to plan of care. MD MEGHAN Campbell/SUN /[id number]
== END 2019-07-31 14:14 | disposition home or self-care (01) | DRG 177 ==
LOC: ER 12:56 → ERHOLD 16:14 → IMCU 21:17
PROVIDERS: ADMIT Internal Medicine; ATTEND Internal Medicine
DX: U07.1 COVID-19 (principal); J12.9 Viral pneumonia, unspecified; E87.6 Hypokalemia; R09.02 Hypoxemia
CPT/HCPCS: 36415; 71045; 80053; 82550; 82553; 83605; 84484; 84702; 85025; 85610; 85730; 87040; 87635; 93005; 99284; J0360; J0456; J0696; J1650; J7030; J7050